=== PATIENT | male | born 1975 | race Caucasian/White ===

== ENCOUNTER 2025-02-21 17:28 | Emergency (ER) | payer BC, SELFPAY ==
--- NOTE | ~2025-02-21 | XR_ITS ---
EXAMINATION: XR shoulder RT min 2V DATE: 02/21/2025 18:10 INDICATION: Trauma due to fall. Diminished range of motion. TECHNIQUE: 4 views of the right shoulder were obtained. COMPARISON: None. FINDINGS: No acute fractures or dislocations at the right shoulder. Soft tissues are unremarkable. IMPRESSION: 1. No acute abnormalities of the right shoulder. Reviewed, dictated and finalized at location T. [facility]
[2025-02-21 17:28] VITALS: BP 155/94; PULSE 77; RESP 18; TEMP 36.8; O2SAT 100
[2025-02-21] MEDS: MORPHINE SULFATE (*CRX) 4 MG/ML INJ IV PUSH (17:58)
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
[2025-02-21 18:45] VITALS: BP 150/89; PULSE 78; RESP 20; O2SAT 98
== END 2025-02-21 18:45 | disposition home or self-care (01) ==
PROVIDERS: Emergency Provider Preventive Medicine Aerospace Medicine
DX: S40.011A Contusion of right shoulder, initial encounter (principal); V18.9XXA Unspecified pedal cyclist injured in noncollision transport accident in traffic accident, initial encounter
CPT/HCPCS: 73030; 96374; 99284; A4565; J2270